=== PATIENT | female | born 1960 | race Two or more races ===

== ENCOUNTER 2020-07-05 15:00 | Emergency (ER) | payer OTHER ==
--- NOTE | 2020-07-05 15:52 | ER Document Report ---
ED General - General Chief Complaint: Fall Injury Stated Complaint: FALL/FACIAL INJURY,NECK PAIN Primary Care Provider: OMARI CR NP [Primary Care Provider] - Follow up as needed - HPI Notes: Chief Complaint: Fall Historian: History obtained from patient HPI: This is a 60-year-old female presents to the ER status post ground-level fall just prior to arrival. Patient is she tripped over a pallet at work and fell forward striking her left face on the concrete ground as well as her left shoulder area. No loss of consciousness. She complains of swelling and pain to the left orbit. Pain across her upper back as well. Denies numbness or weakness to the upper extremities. No vision changes. She denies confusion, worst headache of her life, nausea vomiting, or other neuro deficits. Patient not on blood thinners. Denies neck pain, low back pain, chest pain, shortness of breath, pelvic pain. Patient is ambulatory. ROS: Constitutional: no fevers. HEENT: Left facial injury. CV: no chest pain or palpitations. Resp: no cough or SOB. GI: no abdominal pain, or n/v/d. : no dysuria, hematuria, or incont. MSK: Bilateral upper back pain Skin: no rashes or itching. Neuro: no seizures, weakness, numbness, or confusion. Hematological: no ecchymosis or easy bleeding. Endocrine: no polyuria/polydipsia, no heat/cold intolerance. Psych: no SI/HI, AH/VH or memory loss. PMHx: Reviewed and agree as charted by RN. PSHx: Reviewed and agree as charted by RN. SOCHx: Reviewed and agree as charted by RN. FHX: No significant familial comorbid conditions directly related to patient complaint Current Medications: Reviewed and agree with the patient medications as charted by the RN. Allergies: Reviewed and agree with the listed allergies as charted by the RN Physical Exam: Vitals: Reviewed in chart as documented by RN. General: Alert and in NAD. Head: Moderate swelling and ecchymosis to the superior and inferior portion of the left orbit. Small 1 cm abrasions to the inferior portion of the orbit without active bleeding. No appreciable step-off or deformity palpated. Extraocular movements are intact as well as superior vision is intact. Eyes grossly normal with normal anterior chamber, corneal clear, pupil 3 mm and reactive. Negative herr sign raccoon sign. No otorrhea/rhinorrhea. Negative hemotympanum bilateral. Eyes: PERRLA, Conjunctivae clear sclerae non-icteric bilat ENT: no soft palate swelling or uvular deviation Neck: trachea midline, no unilateral swelling/tenderness/lymphadenopathy CV: RRR, no M/R/G; symmetric distal pulses Resp: respirations even and unlabored, CTA bilat. no chest wall tenderness or deformity. Good air movement bilaterally. GI: abd soft and nondistended. NTTP. normal BS. no masses/HSM. no CVAT bilat MSK: FROM of all extremities. No midline CTL spine tenderness/deformity. Full range of motion of C-spine. Full range of motion of BUE, strength 5/5 and equal bilateral. Thoracicmild midline proximal thoracic tenderness without step-off or deformity. Bilateral paraspinous and trapezius tenderness. Patient does have full range of motion of T-spine and bilateral shoulders. Skin: warm, moist, good turgor. no rash/lesions Neuro: Alert and oriented X 4. following CN 2-12 intact. no unilateral weakness/numbness Psych: No SI/HI or AH/VH. Medical Decision-Making: Medical Decision-making/Differential Diagnosis: Consider various etiologies including but not limited to mild tbi, closed head injury, ICH, skull fracture, orbital fracture, thoracic strain, skin/soft tissue structure injury, MSK injury, strain/sprain, fracture, dislocation, bursitis, tendonitis, contusion, ect Plan-we will get CT head without contrast to rule out intracranial hemorrhage, as well as facial fractures. I do not feel a facial CT is indicated as her trauma is mainly to the left orbit which should be included on the plain head CT. Also will have a thoracic x-ray to rule out any fractures of the T- spine/scapula. Although I do have low suspicion for any of that. She is neurologically intact. I do feel C-spine imaging is indicated she has no midline tenderness and full range of motion without neurologic deficit. She is alert and oriented and in no acute distress. This course of action was discussed with the patient and/or family. They were amenable to this, verbalized understanding, and were without further questions. - Related Data Allergies/Adverse Reactions: No Known Allergies Allergy (Unverified 07/05/20 15:31) Home Medications: amlodipine Past Medical History - Social History Smoking Status: Unknown if Ever Smoked Patient has homicidal ideation: No Physical Exam - Vital signs Vitals: Temp Pulse Resp BP Pulse Ox 98.3 F 72 16 173/80 H 98 07/05/20 15:06 07/05/20 15:06 07/05/20 15:06 07/05/20 15:06 07/05/20 15:06 Course - Re-evaluation Re-evalutation: 07/05/20 16:56 CT head thoracic x-ray negative. Only notable findings was left orbital hematoma. Patient may have a mild TBI and I discussed home care return factors and precautions regarding this. She may take Tylenol Motrin for pain. Primary care follow-up this week. Return factors discussed. - Vital Signs Vital signs: Temp Pulse Resp BP Pulse Ox 98.3 F 72 16 173/80 H 98 07/05/20 15:06 07/05/20 15:06 07/05/20 15:06 07/05/20 15:06 07/05/20 15:06 - Laboratory Results Critical Laboratory Results Reviewed: No Critical Results - Radiology Results Critical Radiology Results Reviewed: No Critical Results Discharge - Discharge Clinical Impression: Closed head injury Qualifiers: Encounter type: initial encounter Qualified Code(s): S09.90XA - Unspecified injury of head, initial encounter Fall Qualifiers: Encounter type: initial encounter Qualified Code(s): W19.XXXA - Unspecified fa ll, initial encounter Thoracic myofascial strain Qualifiers: Encounter type: initial encounter Qualified Code(s): S29.019A - Strain of muscle and tendon of unspecified wall of thorax, initial encounter Condition: Stable Disposition: HOME, SELF-CARE Instructions: Eye Socket Trauma ([facility]), Head Injury Precautions ([facility]) Additional Instructions: Tylenol and Motrin for pain. Ice injured areas. Concussion protocols. Follow all printed instructions. Take medications as prescribed. Follow up with your doctor in 2-3 days for re-check. Return to the ER if your condition worsens. Referrals: OMARI CR, [employer] RENTAL CLERK [Primary Care Provider] - Follow up as needed
--- NOTE | 2020-07-05 16:41 | RADIOLOGY REPORT (SQ) ---
EXAM DESCRIPTION: T SPINE AP/LAT IMAGES COMPLETED DATE/TIME: 07/05/2020 4:28 pm REASON FOR STUDY: fall, upper back pain COMPARISON: None. NUMBER OF VIEWS: Two views. TECHNIQUE: AP and lateral radiographic images acquired of the thoracic spine. LIMITATIONS: None. FINDINGS: MINERALIZATION: Normal. ALIGNMENT: Normal. No scoliosis. VERTEBRAE: No fracture or bone lesion. Maintained height, normal segmentation. DISCS: Multilevel disc space narrowing with osteophytes. HARDWARE: None in the spine. MEDIASTINUM AND SOFT TISSUES: Normal heart size and aortic contour. No soft tissue abnormality. VISUALIZED LUNG JOHNSON: Clear. OTHER: No other significant finding. IMPRESSION: No acute findings. TECHNICAL DOCUMENTATION: JOB ID: [id number] 2010 [employer]- All Rights Reserved Reading location - IP/workstation name: [email or web address]
--- NOTE | 2020-07-05 16:55 | RADIOLOGY REPORT (SQ) ---
EXAM DESCRIPTION: CT HEAD WITHOUT IMAGES COMPLETED DATE/TIME: 07/05/2020 1:42 pm REASON FOR STUDY: fall, left orbit injury. COMPARISON: None. TECHNIQUE: Axial images acquired through the brain without intravenous contrast. Images reviewed wi th bone, brain and subdural windows. Additional sagittal and coronal reconstructions were generated. Images stored on PACS. All CT scanners at this facility use dose modulation, iterative reconstruction, and/or weight based d osing when appropriate to reduce radiation dose to as low as reasonably achievable (ALARA). [facility]: Dose Right [facility]: CareDose [facility]: Dose Right [facility]: Teradose 4D [facility]: Smart fromAtoB RADIATION DOSE: CT Rad equipment meets quality standard of care and radiation dose reduction techniq ues were employed. CTDIvol: 53.2 mGy. DLP: 964 mGy-cm. mGy. LIMITATIONS: None. FINDINGS: VENTRICLES: Normal size and contour. CEREBRUM: No masses. No hemorrhage. No midline shift. No evidence for acute infarction. Normal gra y/white matter differentiation. No areas of low density in the white matter. CEREBELLUM: No masses. No hemorrhage. No alteration of density. No evidence for acute infarction. EXTRAAXIAL SPACES: No fluid collections. No masses. ORBITS AND GLOBE: No intra- or extraconal masses. Normal contour of globe without masses. CALVARIUM: No fracture. PARANASAL SINUSES: No fluid or mucosal thickening. SOFT TISSUES: Left frontal supraorbital scalp contusion OTHER: No other significant finding. IMPRESSION: 1. No acute intracranial abnormality on noncontrast CT. 2. Left frontal/ supra orbital scalp hematoma. No underlying acute fracture identified. EVIDENCE OF ACUTE STROKE: NO. COMMENT: Quality ID # [id number]: Final reports with documentation of one or more dose reduction techniques (e.g., Automated exposure control, adjustment of the mA and/or kV according to patient size, use of iterative reconstruction technique) TECHNICAL DOCUMENTATION: JOB ID: [id number] 2010 [employer]- All Rights Reserved Reading location - IP/workstation name: [email or web address]
[2020-07-05 17:29] VITALS: BP 132/84
== END 2020-07-05 17:28 | disposition home or self-care (01) ==
LOC: ER 15:00
DX: S09.93XA Unspecified injury of face, initial encounter (principal); S29.019A Strain of muscle and tendon of unspecified wall of thorax, initial encounter; R22.0 Localized swelling, mass and lump, head; M54.6 Pain in thoracic spine; W01.10XA Fall on same level from slipping, tripping and stumbling with subsequent striking against unspecified object, initial encounter
CPT/HCPCS: 70450; 72070; 99284